=== PATIENT | female | born 1945 | race African-American/Black ===

== ENCOUNTER 2017-08-29 14:52 | Inpatient (IN) | payer MEDICARE ==
[2017-08-29] MEDS ORDERED: Ondansetron ODT 4 MG TAB SL PRN (18:56)
[2017-08-29] MEDS ORDERED: Acetaminophen 325 MG TAB PO PRN (18:56)
[2017-08-29] MEDS ORDERED: Ondansetron HCl/PF 4 MG/2 ML Vial IVP PRN ×2 (18:56→21:25)
[2017-08-29 19:08] VITALS: BMI 24.0
[2017-08-29 20:10] LABS: Troponin I 0.054 ng/mL (< 0.028)
[2017-08-29] MEDS ORDERED: Acetaminophen 500 MG TAB PO PRN (21:25)
[2017-08-29] MEDS ORDERED: Ondansetron ODT 4 MG TAB PO PRN (21:25)
[2017-08-29] MEDS ORDERED: hydrALAZINE 20 MG/ML VIAL SLOW IVP PRN (21:25)
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
[2017-08-30 05:59] LABS: Anion Gap 12 mmol/L (10-20); BUN (Urea Nitrogen) 23 mg/dL (9.8-20.1); Calc. Creatinine Clearance 32 mL/min (70-130); Calcium 9.5 mg/dL (7.8-10.44); Carbon Dioxide 24 mmol/L (23-31); Cardiac Risk 3.7 (Less than 4.5); Chloride 104 mmol/L (98-107); Cholesterol 139 mg/dl (< 200 Desired); Estimated GFR-MDRD 38; Glucose 88 mg/dL (83-110); HDL Cholesterol 38 mg/dL (>60 Neg Risk); LDL Cholesterol, Calculated 84 mg/dL; Potassium 3.3 mmol/L (3.5-5.1); Sodium 137 mmol/L (136-145); Triglycerides 85 mg/dL (Less than 150)
[2017-08-30 06:15] LABS: Eosinophils 2 % (0-10); Hemoglobin 13.2 g/dL (12.0-16.0); Lymphocytes 46 % (21-51); MDiff Complete? YES; Mean Corpuscular HGB CONC 31.1 g/dL (32.0-36.0); Mean Corpuscular Hemoglobin 28.2 pg (27.0-31.0); Mean Corpuscular Volume 90.7 fl (81.0-99.0); Mean Platelet Volume 7.1 fL (7.4-10.4); Monocytes 12 % (0-10); Neutrophil 39 % (42-75); PLT Morphology Comment Appears Adequate; Platelet Count 227 thou/uL (130-400); RBC Distribution Width 12.8 % (11.5-14.5); RBC Morphology Normal; Reactive Lymphocytes 1 % (0-10); Red Blood Cell (RBC) Count 4.66 mill/uL (4.20-5.40); White Blood Cell (WBC) Count 4.7 thou/uL (4.8-10.8)
--- NOTE | 2017-08-30 08:34 | ULT ---
CAROTID DOPPLER ULTRASOUND: Date: 08/30/17 HISTORY: Evaluate for focal stenosis. TIA> COMPARISON: None. TECHNIQUE: Real-time Feliz scale, color Doppler, and spectral analysis of the extracranial carotid and vertebral arteries was performed. FINDINGS: There are no elevated peak systolic velocities within the internal carotid arteries. Moderate atheros clerotic plaque both internal carotid arteries. Antegrade flow both vertebral arteries. Right ICA/CCA ratio is 1.05. Left ICA/CCA ratio is 1.09. IMPRESSION: No hemodynamically significant stenosis. POS: BRANDYN
[2017-08-30] MEDS: Aspirin 325 mg Enteric Coated Tablet PO SCH (08:56)
[2017-08-30] MEDS ORDERED: Famotidine 20 MG TAB PO SCH (09:00)
--- NOTE | 2017-08-30 11:39 | MRI ---
MRI BRAIN WITHOUT CONTRAST: Date: 08/30/17 HISTORY: TIA. COMPARISON: CT brain dated 08/29/17. FINDINGS: Throughout the left TIANA territory are numerous punctate areas of diffusion restriction. No other terr itorial infarction. Old right lacunar infarct. On the susceptibility weighted imaging sequence, there is susceptibility around the old right lacunar infarct, likely from old hemorrhage within the cavity. Small, punctate area of old hemorrhage in the right zandra. No midline shift or mass effect. Moderate microvascular ischemic changes. No hydrocephalus. No subara chnoid hemorrhage. Orbits are unremarkable. IMPRESSION: 1. Numerous punctate acute infarctions within the left TIANA territory. 2. Old right basal ganglia lacunar infarct with hemorrhage within the cavity. 3. 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 4. Advanced degenerative changes of the cervical spine. POS: BRANDYN
--- NOTE | 2017-08-30 17:06 | PDOC.PN ---
- Subjective Encounter Start Date: 08/30/17 Encounter Start Time: 17:00 Subjective: f/u for suspected TIA and MRI showing acute punctate infarctions in L -: TIANA distribution. Tx with ASA and feeling ok overall. Still has -: numbness of R thigh region. - Objective MAR Reviewed: Yes Vital Signs & Weight: Vital Signs (12 hours) Temp Pulse Resp BP Pulse Ox 08/30/17 14:27 98.5 F 55 L 15 158/77 H 96 I&O: 08/29/17 08/30/17 08/31/17 06:59 06:59 06:59 Intake Total 240 Balance 240 Result Diagrams: 08/30/17 04:28 08/30/17 04:28 Additional Labs: Laboratory Tests 08/29/17 08/30/17 12:00 04:28 Potassium 3.4 L Creatinine 1.62 H Estimated GFR (MDRD) 38 Triglycerides 85 Cholesterol 139 LDL Cholesterol, Calc 84 HDL Cholesterol 38 Radiology Reviewed by me: Yes (MRI Brain - L TIANA punctate acute infarctions) EKG Reviewed by me: Yes (Tele - SR) Phys Exam - Physical Examination Constitutional: NAD HEENT: PERRLA, oral pharynx no lesions Neck: no JVD, supple Respiratory: no wheezing, clear to auscultation bilateral Cardiovascular: RRR Gastrointestinal: soft, non-tender, no distention, positive bowel sounds Musculoskeletal: no edema, pulses present R-sided mild hemiparesis, moves all extremities dysarthria, R facial droop Neurological: normal sensation, moves all 4 limbs Skin: normal turgor, cap refill <2 seconds Dx/Plan (1) CVA (cerebral vascular accident) Code(s): I63.9 - CEREBRAL INFARCTION, UNSPECIFIED Status: Acute Qualifiers: CVA mechanism: thrombosis Precerebral and cerebral artery: anterior cerebral artery Laterality of affected vessel: left Qualified Code(s): I63.322 - Cerebral infarction due to thrombosis of left anterior cerebral artery Comment: Acute CVA in L TIANA distribution with multiple punctate infarcts noted on MRI brain, continue ASA 325mg daily, Lipitor 20mg HS, stroke protocol, consult Neurology, 2D echo pending (2) HTN (hypertension) Code(s): I10 - ESSENTIAL (PRIMARY) HYPERTENSION Status: Chronic Qualifiers: Hypertension type: essential hypertension Qualified Code(s): I10 - Essential (primary) hypertension Comment: Permissive HTN given acute CVA, titrate antihypertensives after acute phase (3) Elevated troponin I level Code(s): R74.8 - ABNORMAL LEVELS OF OTHER SERUM ENZYMES Status: Acute Comment: Suspect demand state given presentation, continue ASA, Lipitor (4) CKD (chronic kidney disease), stage III Code(s): N18.3 - CHRONIC KIDNEY DISEASE, STAGE 3 (MODERATE) Status: Chronic Comment: Avoid nephrotoxic meds and limit contrast exposure (5) HLD (hyperlipidemia) Code(s): E78.5 - HYPERLIPIDEMIA, UNSPECIFIED Status: Chronic Comment: Continue Lipitor (6) Hypokalemia Code(s): E87.6 - HYPOKALEMIA Status: Acute Comment: KCL 40meq po daily, repeat K+ level in am - Plan plan discussed w/ family, PT/OT, social media strategist, out of bed/ambulate, DVT proph w/SCDs Stable currently -: Continue general stroke protocol -: CM for PT options, ? outpt PT -: Continue ASA 325mg daily -: Continue Lipitor 20mg HS * 2D Echo pending * Convert to inpt status
[2017-08-30] MEDS: Atorvastatin Calcium 20 MG TAB PO SCH (21:02)
[2017-08-31] MEDS: Famotidine 20 MG TAB PO SCH (09:27)
[2017-08-31] MEDS: Aspirin 325 mg Enteric Coated Tablet PO SCH (09:27)
--- NOTE | 2017-08-31 14:45 | PDOC.PN ---
- Subjective Encounter Start Date: 08/31/17 Encounter Start Time: 14:40 Subjective: f/u for L TIANA distribution punctate infarctions on ASA and Lipitor. HTN -: noted and labile. Some R thigh numbness remains but able to ambulate -: with PT assist. - Objective MAR Reviewed: Yes Vital Signs & Weight: Vital Signs (12 hours) Temp Pulse Pulse Pulse Pulse Resp BP 08/31/17 11:40 98.8 F 50 L 16 08/31/17 10:35 54 L 59 L 159/70 H 08/31/17 08:10 52 L 51 L 181/83 H 08/31/17 07:30 97.4 F L 45 L 18 08/31/17 04:00 97.3 F L 46 L 16 BP BP BP Pulse Ox 08/31/17 11:40 171/79 H 98 08/31/17 10:35 193/90 H 140/77 08/31/17 08:10 188/86 H 08/31/17 07:30 163/72 H 96 08/31/17 04:00 138/63 97 I&O: 08/30/17 08/31/17 09/01/17 06:59 06:59 06:59 Intake Total 540 600 Balance 540 600 Result Diagrams: 08/30/17 04:28 08/30/17 04:28 Radiology Reviewed by me: Yes (2D Echo - EF 40-45%, diast dysfxn, limited study) EKG Reviewed by me: Yes (Tele - Sinus bradycardia) Phys Exam - Physical Examination Constitutional: NAD HEENT: PERRLA, oral pharynx no lesions Neck: no JVD, supple Respiratory: no wheezing, clear to auscultation bilateral Cardiovascular: RRR Gastrointestinal: soft, non-tender, no distention, positive bowel sounds Musculoskeletal: no edema, pulses present R sided weakness, mild, R facial droop, mild Neurological: moves all 4 limbs Psychiatric: A&O x 3 Skin: normal turgor, cap refill <2 seconds Dx/Plan (1) CVA (cerebral vascular accident) Code(s): I63.9 - CEREBRAL INFARCTION, UNSPECIFIED Status: Acute Qualifiers: CVA mechanism: thrombosis Precerebral and cerebral artery: anterior cerebral artery Laterality of affected vessel: left Qualified Code(s): I63.322 - Cerebral infarction due to thrombosis of left anterior cerebral artery Comment: Acute CVA in L TIANA distribution with multiple punctate infarcts noted on MRI brain, continue ASA 325mg daily, Lipitor 20mg HS, stroke protocol, consult Neurology, 2D echo with EF 40-45%, diastolic dysfunction (2) HTN (hypertension) Code(s): I10 - ESSENTIAL (PRIMARY) HYPERTENSION Status: Chronic Qualifiers: Hypertension type: essential hypertension Qualified Code(s): I10 - Essential (primary) hypertension Comment: Permissive HTN given acute CVA but labile, start Norvasc 5mg daily, monitor clinically (3) Elevated troponin I level Code(s): R74.8 - ABNORMAL LEVELS OF OTHER SERUM ENZYMES Status: Acute Comment: Suspect demand state given presentation, continue ASA, Lipitor (4) CKD (chronic kidney disease), stage III Code(s): N18.3 - CHRONIC KIDNEY DISEASE, STAGE 3 (MODERATE) Status: Chronic Comment: Avoid nephrotoxic meds and limit contrast exposure (5) HLD (hyperlipidemia) Code(s): E78.5 - HYPERLIPIDEMIA, UNSPECIFIED Status: Chronic Comment: Continue Lipitor (6) Hypokalemia Code(s): E87.6 - HYPOKALEMIA Status: Acute Comment: KCL 40meq po x 1 today then BID, repeat K+ level in am - Plan plan discussed w/ family, PT/OT, social work job titles, out of bed/ambulate, DVT proph w/SCDs Continue ASA 325mg daily -: Continue Lipitor 20mg HS -: Start Norvasc 5mg daily -: PT/OT for mobilization -: Neurology consult pending * AM lab: BMP * CM for SNF options, likely [facility]
[2017-08-31] MEDS ORDERED: Potassium Chloride 20 MEQ TAB PO SCH (15:00)
[2017-08-31] MEDS ORDERED: Amlodipine 5 MG TAB PO SCH (15:45)
--- NOTE | 2017-08-31 19:47 | CON ---
DATE OF CONSULTATION: 08/31/2017 NEUROLOGY CONSULTATION CONSULTING PHYSICIAN: Hospitalist Service. IMPRESSION: 1. Left anterior cerebral artery infarct, likely secondary to primary thrombosis. 2. Prior right basal ganglia and pontine infarct. 3. Hyperlipidemia. 4. Hypertension. PLAN: 1. Add aspirin. 2. Continue statin. 3. Patient can be discharged home. HISTORY OF PRESENT ILLNESS: Ms. Andrea is a 72-year-old black female with a past history as noted abov e. She developed right-sided weakness and primarily affecting the upper extremity. She came in for evaluation. Her MRI of the brain revealed acute areas of punctate infarction involving the left ante rior cerebral artery territory. She reports that her symptoms have improved quite a bit since yester day. Her carotid ultrasound did not show any evidence of extracranial stenosis. Her echocardiogram showed an ejection fraction between 40% and 45%. Her laboratory studies were otherwise negative. Kathy mishra was not taking aspirin prior to admission. PAST MEDICAL HISTORY: As listed above. ALLERGIES: None. SOCIAL HISTORY: No tobacco or alcohol. FAMILY HISTORY: Noncontributory. REVIEW OF SYSTEMS: No complaint of headache, difficulty understanding speech or producing words. PHYSICAL EXAMINATION: VITAL SIGNS: Stable. She is afebrile. GENERAL: She is a thin elderly lady sitting up in bed in no distress. HEENT: Unremarkable. NECK: Without lymphadenopathy. EXTREMITIES: Without cyanosis, clubbing or edema. NEUROLOGIC: She is alert and cooperative. She was not very willing to carry on a conversation, but her speech was fluent and clear. She followed commands appropriately. Her motor exam did not show a ny focal deficits. Sensation was subjectively equal. She has been able to walk independently. Ther e is no tremor or dysmetria present. DIAGNOSTIC STUDIES: EKG showed a sinus rhythm. SUMMARY: Elderly lady with a focal infarction involving the left anterior cerebral territory. Sympt oms are much better. I agree with your plan of treatment.
[2017-08-31] MEDS: Atorvastatin Calcium 20 MG TAB PO SCH (21:45)
[2017-09-01 06:22] LABS: Anion Gap 13 mmol/L (10-20); BUN (Urea Nitrogen) 23 mg/dL (9.8-20.1); Calc. Creatinine Clearance 35 mL/min (70-130); Calcium 9.5 mg/dL (7.8-10.44); Carbon Dioxide 20 mmol/L (23-31); Chloride 108 mmol/L (98-107); Estimated GFR-MDRD 42; Glucose 105 mg/dL (83-110); Sodium 137 mmol/L (136-145)
[2017-09-01] MEDS: Famotidine 20 MG TAB PO SCH (09:32)
[2017-09-01] MEDS: Aspirin 325 mg Enteric Coated Tablet PO SCH (09:32)
[2017-09-01] MEDS: Potassium Chloride 20 MEQ TAB PO SCH ×2 (09:32→18:21)
[2017-09-01] MEDS: Amlodipine 5 MG TAB PO SCH (09:32)
--- NOTE | 2017-09-01 16:23 | PDOC.PN ---
- Subjective Encounter Start Date: 09/01/17 Encounter Start Time: 08:35 -: old records requested/rev Pt seen and examined, chart reviewed in its entirety, this is my first visit with this patient. Pt with LUE and LLE weakness, Right ptosis. Deneis F/C, no N/V/D/C, no CP or sOB. updated to plan to release to rehab when approved. Case discussed with case management, pending insurance approval, requires a pre-auth 10 point ROS performed and neg for all systems except as per HPI - Objective Resuscitation Status: f MAR Reviewed: Yes Vital Signs & Weight: Vital Signs (12 hours) Temp Pulse Resp BP Pulse Ox 09/01/17 15:43 98.2 F 57 L 16 182/75 H 95 09/01/17 11:49 98.6 F 60 16 145/66 H 99 09/01/17 09:32 49 L 09/01/17 08:15 98.1 F 49 L 14 94 L 09/01/17 04:33 98.1 F 49 L 14 161/78 H 94 L I&O: 08/31/17 09/01/17 09/02/17 06:59 06:59 06:59 Intake Total 540 1400 Balance 540 1400 Result Diagrams: 08/30/17 04:28 09/01/17 05:44 Radiology Reviewed by me: Yes EKG Reviewed by me: Yes Phys Exam - Physical Examination Constitutional: NAD HEENT: PERRLA, moist MMs, sclera anicteric, oral pharynx no lesions right lid ptosis Neck: no nodes, no JVD, supple, full ROM Respiratory: no wheezing, no rales, no rhonchi, clear to auscultation bilateral Cardiovascular: no significant murmur, no rub, irregular Gastrointestinal: soft, non-tender, no distention, positive bowel sounds Musculoskeletal: no edema, pulses present Neurological: moves all 4 limbs LUE, LLE 3/5 strength, right 5/5 Lymphatic: no nodes Psychiatric: normal affect, A&O x 3 Skin: no rash, normal turgor, cap refill <2 seconds Dx/Plan (1) Chronic combined systolic (congestive) and diastolic (congestive) heart failure Code(s): I50.42 - CHRONIC COMBINED SYSTOLIC AND DIASTOLIC HRT FAIL Status: Acute Comment: EF 40-45%, DD present, no acute flare (2) CVA (cerebral vascular accident) Code(s): I63.9 - CEREBRAL INFARCTION, UNSPECIFIED Status: Acute Qualifiers: CVA mechanism: thrombosis Precerebral and cerebral artery: anterior cerebral artery Laterality of affected vessel: left Qualified Code(s): I63.322 - Cerebral infarction due to thrombosis of left anterior cerebral artery Comment: Acute CVA in L TIANA distribution with multiple punctate infarcts noted on MRI brain, continue ASA 325mg daily, Lipitor 20mg HS, stroke protocol, consult Neurology, 2D echo with EF 40-45%, diastolic dysfunction. To rehab when approved (3) Elevated troponin I level Code(s): R74.8 - ABNORMAL LEVELS OF OTHER SERUM ENZYMES Status: Resolved Comment: Suspect demand state given presentation, continue ASA, Lipitor (4) CKD (chronic kidney disease), stage III Code(s): N18.3 - CHRONIC KIDNEY DISEASE, STAGE 3 (MODERATE) Status: Chronic Comment: Avoid nephrotoxic meds and limit contrast exposure (5) HLD (hyperlipidemia) Code(s): E78.5 - HYPERLIPIDEMIA, UNSPECIFIED Status: Chronic Qualifiers: Hyperlipidemia type: unspecified Qualified Code(s): E78.5 - Hyperlipidemia , unspecified Comment: Continue Lipitor (6) HTN (hypertension) Code(s): I10 - ESSENTIAL (PRIMARY) HYPERTENSION Status: Chronic Qualifiers: Hypertension type: essential hypertension Qualified Code(s): I10 - Essential (primary) hypertension Comment: Permissive HTN given acute CVA but labile, start Norvasc 5mg daily, monitor clinically. Stable - Plan cont current plan of care, PT/OT, social professionals, DVT proph w/SCDs * .
[2017-09-01] MEDS: Atorvastatin Calcium 20 MG TAB PO SCH (23:15)
[2017-09-02 06:26] LABS: #Lymphocytes 1.6 thou/uL (1.20-3.40); #Monocytes 0.5 thou/uL (0.11-0.59); #Neutrophils 1.9 thou/uL (1.40-6.50); %Basophils 0.9 % (0.0-1.0); %Eosinophils 1.2 % (0.0-10.0); %Lymphocytes 40.2 % (21.0-51.0); %Monocytes 11.3 % (0.0-10.0); %Neutrophils 46.4 % (42.0-75.0); Hemoglobin 14.3 g/dL (12.0-16.0); Mean Corpuscular HGB CONC 32.4 g/dL (32.0-36.0); Mean Corpuscular Volume 92.5 fl (81.0-99.0); Mean Platelet Volume 7.1 fL (7.4-10.4); Platelet Count 217 thou/uL (130-400); RBC Distribution Width 12.8 % (11.5-14.5); Red Blood Cell (RBC) Count 4.76 mill/uL (4.20-5.40)
[2017-09-02 06:53] LABS: Anion Gap 12 mmol/L (10-20); BUN (Urea Nitrogen) 21 mg/dL (9.8-20.1); Calc. Creatinine Clearance 34 mL/min (70-130); Calcium 9.9 mg/dL (7.8-10.44); Carbon Dioxide 22 mmol/L (23-31); Chloride 111 mmol/L (98-107); Estimated GFR-MDRD 42; Glucose 95 mg/dL (83-110); Magnesium 1.8 mg/dL (1.6-2.6); Potassium 4.8 mmol/L (3.5-5.1); Sodium 140 mmol/L (136-145)
[2017-09-02 08:18] VITALS: BP 161/72; TEMP 98.2
[2017-09-02] MEDS: Potassium Chloride 20 MEQ TAB PO SCH (09:17)
[2017-09-02] MEDS: Famotidine 20 MG TAB PO SCH (09:17)
[2017-09-02] MEDS: Amlodipine 5 MG TAB PO SCH (09:17)
[2017-09-02] MEDS: Aspirin 325 mg Enteric Coated Tablet PO SCH (09:18)
--- NOTE | 2017-09-03 06:55 | DIS ---
DATE OF ADMISSION: 08/30/2017 DATE OF DISCHARGE: 09/02/2017 DISCHARGE DIAGNOSES: 1. Left anterior cerebral artery distribution ischemic infarct. 2. Left hemiparesis. 3. Expressive aphasia. 4. Hypertension, essential, chronic. 5. Hyperlipidemia, chronic. 6. Chronic combined systolic and diastolic congestive heart failure. 7. Demand ischemia. 8. Chronic kidney disease stage 3. CONSULTATIONS: Neurology, Dr. Ger Prince, 08/31/2017. PROCEDURES: Echocardiogram on 08/31/2017 that showed EF of 40%-45%, poor endocardial definition, pos sible hypokinesis of the lateral wall, E to A flow reversal noted suggestive of diastolic dysfunction . HISTORY AND PHYSICAL: Ms. Andrea is a pleasant 72-year-old -[place] female who was admitted by Dr. Keyur Gar on 08/29/2017 after complaining of falling and weakness. She presented to an outside Emergency Department at [place] and was subsequently transferred her e. There was no hard time who was found to be in left-sided weakness, thus the patient was not a can didate for TPA. CT scan was negative. We were subsequently called for admission. HOSPITAL COURSE: The patient was seen and examined by Dr. Keyur Gar and admitted to the hospital. MRI of the brain, carotid Dopplers and echocardiogram were ordered. Neurology consultation was req uested. The patient was placed on aspirin, was continued on statin, and PT, OT and Speech Therapy co nsults were requested. From 08/29/2017 to 08/30/2017, the patient remained stable without much improvement. PT, OT evaluate d the patient and thought inpatient rehabilitation versus detention facility rehab appropriate. MRI on 08/30/2017 showed numerous punctate acute infarcts in the left TIANA territory, old right basa l ganglia lacunar infarct with hemorrhage within the cavity, old right-sided pontine hemorrhage and a dvanced degenerative changes of the cervical spine. Carotid Doppler on the same day showed no hemody namically significant stenoses. She continued to remain stable. On 08/31/2017, echocardiogram was done that showed no evidence of th rombus. Neurology saw her and recommended continuing current management with aspirin, statin, PT, OT and rehab placement. construction operations manager was consulted and arrangements were begun. She was ultimately accepted for rehabilitation at [facility] swing bed for re habilitation, to be accepted on 09/02/2017, and on 09/02/2017 she was stable for discharge. She was transferred to [facility] under care of Dr. Arriaga for PT, OT and ST. PHYSICAL EXAMINATION: The patient was seen and examined on the day of discharge. Discharge plan and disposition was discussed with the patient face-to face-at the bedside. was present. DISCHARGE MEDICATIONS: 1. Aspirin 325 mg daily. 2. Lipitor 20 mg p.o. at bedtime. 3. Famotidine 20 mg daily. 4. Lisinopril/HCTZ 20/25 one p.o. daily. 5. Zofran 4 mg p.o. q.6 hours p.r.n. 6. K-Dur 40 mEq p.o. daily. 7. Norvasc 5 mg daily. 8. Tylenol 1000 mg every 6 hours as needed for pain or fever. DISCHARGE CONDITION: Stable. DISPOSITION: Being transferred to [facility] for physical therapy, speech therapy, occu pational therapy under Dr. Arriaga. ACTIVITY: Per Cardiopulmonary limits. DISCHARGE DIET: Heart healthy ordered. FOLLOWUP APPOINTMENTS: 1. Primary care physician within a week. 2. Dr. Ger Prince in 2-3 weeks.
== END 2017-09-02 11:32 | DRG 65 ==
LOC: ERS 14:52 → 2SW 18:39 → OBSVTOIN 08-30 12:59 → 2SE 08-30 14:28
PROVIDERS: ADMIT Family Medicine; ATTEND Family Medicine
DX: I63.9 Cerebral infarction, unspecified (principal); G81.94 Hemiplegia, unspecified affecting left nondominant side; I13.0 Hypertensive heart and chronic kidney disease with heart failure and stage 1 through stage 4 chronic kidney disease, or unspecified chronic kidney disease; I50.42 Chronic combined systolic (congestive) and diastolic (congestive) heart failure; I24.8 Other forms of acute ischemic heart disease; N18.3 Chronic kidney disease, stage 3 (moderate); R47.01 Aphasia; E78.5 Hyperlipidemia, unspecified; Z86.73 Personal history of transient ischemic attack (TIA), and cerebral infarction without residual deficits; E87.6 Hypokalemia
CPT/HCPCS: 36415; 70551; 80048; 80061; 83690; 83735; 85007; 85025; 85027; 93005; 93306; 93880; A4216; G8978-GP-CK; G8979-GP-CJ; G8987-GO-CJ; G8988-GO-CI; G8996-GN-CJ; G8997-GN-CI

== ENCOUNTER 2021-02-09 15:05 | Inpatient (IN) | payer MEDICARE ==
[2021-02-09] MEDS ORDERED: EPINEPHrine 1 MG/10 ML Abboject SYRINGE ONE ×4 (15:10→16:22)
[2021-02-09] MEDS ORDERED: EPINEPHrine 1 MG/ML VIAL ONE ×3 (15:10→16:22)
[2021-02-09 15:30] LABS: Actual Bicarbonate (HCO3a) 17.2 mEq/L (22-28); Analyzer IN Cardio ER; Base Excess (BEa) -7.4 mEq/L (-2.0 to +3.0); CO2 Tension 32.5 mmHg (35.0-45.0); Calcium, Ionized (arterial) 1.12 mmol/L (1.12-1.30); Carboxyhemoglobin (COHb) 1.5 gm% (0.0-3.0); Hemoglobin (Hb) 13.9 g/dL (12.0-16.0); Potassium - ABG Lab 3.48 mmol/L (3.70-5.30); pH, Arterial 7.34 (7.35-7.45)
[2021-02-09] MEDS ORDERED: Fentanyl CADD 100 ML IV SCH (15:30)
[2021-02-09 15:32] LABS: Puncture Site RRA
[2021-02-09 15:33] LABS: ALV-art Gradient 237.875 mmHg (0-20)
[2021-02-09] MEDS ORDERED: Lidocaine 1% (PF) 30 ML VIAL ONE (15:34)
[2021-02-09] MEDS ORDERED: Heparin 10,000 UNITS/ 10 ML VIAL ONE (15:34)
[2021-02-09 15:36] LABS: #Basophils 0.2 thou/uL (0.0-0.2); #Eosinphils 0.1 thou/uL (0.0-0.7); #Lymphocytes 2.8 thou/uL (1.20-3.40); #Monocytes 0.3 thou/uL (0.11-0.59); %Basophils 1.7 % (0.0-1.0); %Eosinophils 0.8 % (0.0-10.0); %Lymphocytes 29.6 % (21.0-51.0); %Monocytes 3.2 % (0.0-10.0); %Neutrophils 64.6 % (42.0-75.0); Hemoglobin 13.9 g/dL (12.0-16.0); Mean Corpuscular HGB CONC 33.8 g/dL (32.0-36.0); Mean Corpuscular Hemoglobin 30.5 pg (27.0-31.0); Mean Corpuscular Volume 90.2 fL (78.0-98.0); Mean Platelet Volume 8.5 fL (7.4-10.4); Platelet Count 184 thou/uL (130-400); RBC Distribution Width 12.9 % (11.5-14.5); Red Blood Cell (RBC) Count 4.56 mill/uL (4.20-5.40); White Blood Cell (WBC) Count 9.3 thou/uL (4.8-10.8)
[2021-02-09 16:01] LABS: SARS-CoV-2 NAA Rapid Test Not Detected (NotDetected)
[2021-02-09 16:01] LABS: ALT (SGPT) 31 U/L (8-55); AST (SGOT) 56 U/L (5-34); Albumin 3.5 g/dL (3.4-4.8); Alkaline Phosphatase 156 U/L (40-110); Anion Gap 26 mmol/L (10-20); BUN (Urea Nitrogen) 17 mg/dL (9.8-20.1); Bilirubin, Total 0.7 mg/dL (0.2-1.2); CK (CPK) 92 U/L (29-168); Calc. Creatinine Clearance 0 mL/min (70-130); Carbon Dioxide 16 mmol/L (23-31); Chloride 106 mmol/L (98-107); Globulin 3.6 g/dL (2.4-3.5); Glucose 158 mg/dL (83-110); Magnesium 2.1 mg/dL (1.6-2.6); Protein, Total 7.1 g/dL (5.8-8.1); Sodium 143 mmol/L (136-145)
[2021-02-09] MEDS ORDERED: Atropine Sulfate 1 mg/10 ml Syringe ONE (16:11)
[2021-02-09 16:12] LABS: INR-International Normal Ratio 1.2; PTT 29.7 sec (22.9-36.1); Prothrombin Time 14.8 sec (12.0-14.7)
[2021-02-09] MEDS ORDERED: Gentamicin 80 MG/2 ML VIAL ONE (16:17)
[2021-02-09] MEDS ORDERED: CEFAZOLIN 1 GM VIAL ONE (16:17)
[2021-02-09 16:19] LABS: CKMB 6.5 ng/mL (0-6.6)
[2021-02-09] MEDS ORDERED: Acetaminophen/Codeine 30-300mg Tablet PO PRN (17:25)
[2021-02-09] MEDS ORDERED: Propofol 1,000 MG/100 ML VIAL IV ONE (17:46)
[2021-02-09] MEDS ORDERED: Electrolyte Replacement Protocol 1 EACH FS ONE (18:07)
[2021-02-09] MEDS ORDERED: Ventilator Sedation Protocol 1 EACH FS ONE (18:07)
[2021-02-09] MEDS ORDERED: niCARdipine 40MG In NaCl 40 MG/200 ML BAG IVPB SCH (18:15)
[2021-02-09 18:24] LABS: pH, Arterial 7.47 (7.35-7.45)
[2021-02-09 18:25] LABS: Actual Bicarbonate (HCO3a) 16.9 mEq/L (22-28); Base Excess (BEa) -4.7 mEq/L (-2.0 to +3.0); CO2 Tension 23.8 mmHg (35.0-45.0); Calcium, Ionized (arterial) 1.07 mmol/L (1.12-1.30); Carboxyhemoglobin (COHb) 0.3 gm% (0.0-3.0); Hemoglobin (Hb) 14.7 g/dL (12.0-16.0); O2 Tension (PaO2), arterial 97.2 mmHg (> 70.0); Potassium - ABG Lab 2.51 mmol/L (3.70-5.30)
[2021-02-09 18:26] LABS: Puncture Site RBR
[2021-02-09] MEDS ORDERED: Propofol BOLUS 1,000 MG/100 ML VIAL IV PRN (18:45)
[2021-02-09] MEDS ORDERED: DISCONTINUE PREVIOUS NARCOTIC PAIN MEDICATIONS AND BENZODIAZEPINES FS SCH (18:45)
[2021-02-09] MEDS ORDERED: Fentanyl BOLUS 250 ML IVPB PRN (18:45)
[2021-02-09] MEDS ORDERED: Electrolyte Replacement Protocol FS PRN (18:45)
[2021-02-09] MEDS ORDERED: Sodium Chloride 0.9% (PF) 10 ML VIAL FS PRN (18:45)
[2021-02-09] MEDS ORDERED: niCARdipine 25 MG in Sodium Chloride 0.9% 250 ML 240 ML IVPB SCH (19:00)
[2021-02-09] MEDS: Sodium Chloride 0.9% 1,000 ML IV SCH (19:34)
[2021-02-09] MEDS: Lactated Ringer's 1,000 ML IV SCH (19:35)
[2021-02-09 20:07] LABS: Lactic Acid 11.3 mmol/L (0.5-2.2)
[2021-02-09 22:50] LABS: Bacteria/HPF 1+ HPF (None Seen); Bilirubin Negative (Negative); Blood, Urine 1+ (Negative); Clarity Turbid (Clear); Glucose, Urine (Dipstick) 30 mg/dL (Negative); Ketone, Urine Negative (Negative); Leukocyte 250 Leu/uL (Negative); Nitrite Negative (Negative); Protein, Urine (Dipstick) 20 mg/dL (Neg-Trace); Specific Gravity, Urine 1.025 (1.002-1.036); Squamous Epithelial 0-3 HPF (0-3); Urobilinogen Normal mg/dL (Less than 2); WBC/HPF 21-50 HPF (0-3)
[2021-02-10] MEDS: Propofol 1,000 MG/100 ML VIAL IV PRN ×3 (03:36→20:42)
[2021-02-10] MEDS: Sodium Chloride 0.9% 1,000 ML IV SCH (03:36)
[2021-02-10 07:06] LABS: Actual Bicarbonate (HCO3a) 20.1 mEq/L (22-28); Base Excess (BEa) -0.7 mEq/L (-2.0 to +3.0); Calcium, Ionized (arterial) 1.06 mmol/L (1.12-1.30); Carboxyhemoglobin (COHb) 0.3 gm% (0.0-3.0); Hemoglobin (Hb) 14.1 g/dL (12.0-16.0); O2 Tension (PaO2), arterial 113.9 mmHg (> 70.0); Potassium - ABG Lab 3.43 mmol/L (3.70-5.30); pH, Arterial 7.54 (7.35-7.45)
[2021-02-10 07:08] LABS: Hemoglobin 15.2 g/dL (12.0-16.0); Mean Corpuscular HGB CONC 33.6 g/dL (32.0-36.0); Mean Corpuscular Hemoglobin 29.8 pg (27.0-31.0); Mean Corpuscular Volume 88.8 fL (78.0-98.0); Red Blood Cell (RBC) Count 5.08 mill/uL (4.20-5.40)
[2021-02-10 07:10] LABS: CO2 Tension 24.2 mmHg (35.0-45.0); Puncture Site RRA
[2021-02-10 07:15] LABS: Anion Gap 23 mmol/L (10-20); BUN (Urea Nitrogen) 20 mg/dL (9.8-20.1); Calc. Creatinine Clearance 27 mL/min (70-130); Calcium 9.1 mg/dL (7.8-10.44); Carbon Dioxide 14 mmol/L (23-31); Cardiac Risk 4.3 (Less than 4.5); Chloride 107 mmol/L (98-107); Cholesterol 167 mg/dl (< 200 Desired); Glucose 87 mg/dL (83-110); HDL Cholesterol 39 mg/dL (>60 Neg Risk); LDL Cholesterol, Calculated 103 mg/dL; Potassium 4.2 mmol/L (3.5-5.1); Sodium 140 mmol/L (136-145); Triglycerides 124 mg/dL (Less than 150)
[2021-02-10 08:22] LABS: Band 4 % (5-11); Lymphocytes 11 % (21-51); MDiff Complete? YES; Mean Platelet Volume 8.1 fL (7.4-10.4); Monocytes 7 % (0-10); Neutrophil 78 % (42-75); Platelet Count 165 thou/uL (130-400); Platelet Morphology Comment Appears Adequate; Vacuoles SLIGHT
[2021-02-10] MEDS ORDERED: Enoxaparin Sodium 40 MG/0.4 ML SYRINGE SC SCH (09:00)
[2021-02-10] MEDS: Pantoprazole 40 MG VIAL IVP SCH (09:28)
[2021-02-10] MEDS: Lactated Ringer's 1,000 ML IV SCH ×2 (09:29→23:00)
[2021-02-10] MEDS ORDERED: Norepinephrine 8 MG/0.9% NS 250 ML ONE (11:26)
[2021-02-10] MEDS ORDERED: Norepinephrine 8 MG/0.9% NS 250 ML IVPB SCH ×2 (11:30→12:00)
[2021-02-10 12:56] LABS: Amphetamine Not Detected (NotDetected); Barbiturates Screen Not Detected (NotDetected); Benzodiazepine Screen Not Detected (NotDetected); Cocaine Metabolite Screen Detected (NotDetected); Methadone Not Detected (NotDetected); Methamphetamine Not Detected (NotDetected); Opiate Screen Not Detected (NotDetected); Oxycodone Screen Not Detected (NotDetected); Phencyclidine (PCP) Not Detected (NotDetected); THC/Cannabinoid Screen Not Detected (NotDetected); Tricyclic Screen Not Detected (NotDetected)
[2021-02-10] MEDS ORDERED: niCARdipine 50 MG in Sodium Chloride 0.9% 250 ML 230 ML IV SCH (13:15)
[2021-02-10 13:35] LABS: Magnesium 1.5 mg/dL (1.6-2.6)
[2021-02-10] MEDS ORDERED: Magnesium 2 GM/50 ML 2 GM in Premix Bag 1 BAG IVPB SCH ×2 (14:00→15:00)
[2021-02-11] MEDS: Propofol 1,000 MG/100 ML VIAL IV PRN ×2 (03:43→23:22)
[2021-02-11 06:50] LABS: #Lymphocytes 1.3 thou/uL (1.20-3.40); #Monocytes 0.9 thou/uL (0.11-0.59); #Neutrophils 7.6 thou/uL (1.40-6.50); %Basophils 0.2 % (0.0-1.0); %Eosinophils 0.3 % (0.0-10.0); %Lymphocytes 13.2 % (21.0-51.0); %Monocytes 9.3 % (0.0-10.0); Hemoglobin 10.9 g/dL (12.0-16.0); Mean Corpuscular Hemoglobin 30.2 pg (27.0-31.0); Mean Corpuscular Volume 88.8 fL (78.0-98.0); Platelet Count 127 thou/uL (130-400); RBC Distribution Width 13.1 % (11.5-14.5); White Blood Cell (WBC) Count 9.9 thou/uL (4.8-10.8)
[2021-02-11 07:12] LABS: Anion Gap 18 mmol/L (10-20); BUN (Urea Nitrogen) 31 mg/dL (9.8-20.1); Calc. Creatinine Clearance 23 mL/min (70-130); Carbon Dioxide 19 mmol/L (23-31); Chloride 104 mmol/L (98-107); Potassium 3.5 mmol/L (3.5-5.1); Sodium 137 mmol/L (136-145)
[2021-02-11 07:13] LABS: ALT (SGPT) 13 U/L (8-55); AST (SGOT) 88 U/L (5-34); Albumin 2.5 g/dL (3.4-4.8); Alkaline Phosphatase 90 U/L (40-110); Bilirubin, Total 0.4 mg/dL (0.2-1.2); Globulin 2.8 g/dL (2.4-3.5); Glucose 94 mg/dL (83-110); Protein, Total 5.3 g/dL (5.8-8.1)
[2021-02-11] MEDS ORDERED: Potassium Chloride 40 MEQ in Sodium Chloride 0.9% 250 ML 250 ML IVPB SCH (08:00)
[2021-02-11 08:12] LABS: Actual Bicarbonate (HCO3a) 21.5 mEq/L (22-28); Calcium, Ionized (arterial) 1.06 mmol/L (1.12-1.30); Carboxyhemoglobin (COHb) 0.3 gm% (0.0-3.0); Hemoglobin (Hb) 11.9 g/dL (12.0-16.0); O2 Tension (PaO2), arterial 98.7 mmHg (> 70.0); Potassium - ABG Lab 3.32 mmol/L (3.70-5.30); pH, Arterial 7.54 (7.35-7.45)
[2021-02-11 08:13] LABS: Puncture Site RA
[2021-02-11] MEDS: Enoxaparin Sodium 30 MG/0.3 ML SYRINGE SC SCH (09:42)
[2021-02-11] MEDS: Pantoprazole 40 MG VIAL IVP SCH (09:47)
[2021-02-11 12:55] LABS: Potassium 4.5 mmol/L (3.5-5.1)
[2021-02-11] MEDS: Lactated Ringer's 1,000 ML IV SCH (14:22)
[2021-02-11] MEDS: Cefepime 1 GM in Sodium Chloride 0.9% 100 ML IVPB SCH (15:00)
[2021-02-11] MEDS ORDERED: niCARdipine 50 MG in Sodium Chloride 0.9% 250 ML 230 ML IV SCH (15:15)
[2021-02-11] MEDS: Acetaminophen 325 MG TAB PO PRN (21:45)
[2021-02-12] MEDS ORDERED: Fentanyl CADD 100 ML ONE (03:00)
[2021-02-12] MEDS: Fentanyl CADD 100 ML IV SCH (03:03)
[2021-02-12] MEDS: Cefepime 1 GM in Sodium Chloride 0.9% 100 ML IVPB SCH ×2 (03:18→14:53)
[2021-02-12 03:57] LABS: #Eosinphils 0.1 thou/uL (0.0-0.7); #Lymphocytes 1.8 thou/uL (1.20-3.40); #Monocytes 0.9 thou/uL (0.11-0.59); #Neutrophils 5.9 thou/uL (1.40-6.50); %Basophils 0.1 % (0.0-1.0); %Eosinophils 0.6 % (0.0-10.0); %Lymphocytes 20.3 % (21.0-51.0); %Monocytes 10.7 % (0.0-10.0); %Neutrophils 68.3 % (42.0-75.0); Hemoglobin 11.9 g/dL (12.0-16.0); Mean Corpuscular HGB CONC 32.6 g/dL (32.0-36.0); Mean Corpuscular Hemoglobin 29.6 pg (27.0-31.0); Mean Platelet Volume 8.4 fL (7.4-10.4); Platelet Count 142 thou/uL (130-400); RBC Distribution Width 13.3 % (11.5-14.5); Red Blood Cell (RBC) Count 4.02 mill/uL (4.20-5.40); White Blood Cell (WBC) Count 8.7 thou/uL (4.8-10.8)
[2021-02-12 04:18] LABS: Anion Gap 14 mmol/L (10-20); BUN (Urea Nitrogen) 45 mg/dL (9.8-20.1); Calc. Creatinine Clearance 24 mL/min (70-130); Calcium 8.5 mg/dL (7.8-10.44); Carbon Dioxide 20 mmol/L (23-31); Chloride 107 mmol/L (98-107); Glucose 114 mg/dL (83-110); Potassium 4.1 mmol/L (3.5-5.1); Sodium 137 mmol/L (136-145)
[2021-02-12] MEDS: Lactated Ringer's 1,000 ML IV SCH ×3 (04:40→19:57)
[2021-02-12 07:30] LABS: Actual Bicarbonate (HCO3a) 22.7 mEq/L (22-28); Base Excess (BEa) -1.5 mEq/L (-2.0 to +3.0); CO2 Tension 36.1 mmHg (35.0-45.0); Calcium, Ionized (arterial) 1.14 mmol/L (1.12-1.30); Carboxyhemoglobin (COHb) 0.3 gm% (0.0-3.0); Hemoglobin (Hb) 11.5 g/dL (12.0-16.0); O2 Tension (PaO2), arterial 97.1 mmHg (> 70.0); Potassium - ABG Lab 4.09 mmol/L (3.70-5.30); pH, Arterial 7.42 (7.35-7.45)
[2021-02-12 07:31] LABS: Puncture Site RRA
[2021-02-12 07:32] LABS: ALV-art Gradient 142.975 mmHg (0-20)
[2021-02-12] MEDS: Enoxaparin Sodium 30 MG/0.3 ML SYRINGE SC SCH (08:59)
[2021-02-12] MEDS: Pantoprazole 40 MG VIAL IVP SCH (09:00)
[2021-02-13] MEDS: Cefepime 1 GM in Sodium Chloride 0.9% 100 ML IVPB SCH (02:42)
[2021-02-13 03:53] LABS: #Lymphocytes 1.3 thou/uL (1.20-3.40); #Monocytes 1.3 thou/uL (0.11-0.59); #Neutrophils 10.7 thou/uL (1.40-6.50); %Basophils 0.2 % (0.0-1.0); %Eosinophils 0.1 % (0.0-10.0); %Monocytes 9.6 % (0.0-10.0); %Neutrophils 80.1 % (42.0-75.0); Mean Corpuscular HGB CONC 30.9 g/dL (32.0-36.0); Mean Corpuscular Hemoglobin 27.9 pg (27.0-31.0); Mean Corpuscular Volume 90.4 fL (78.0-98.0); Mean Platelet Volume 9.1 fL (7.4-10.4); Platelet Count 166 thou/uL (130-400); RBC Distribution Width 13.4 % (11.5-14.5); Red Blood Cell (RBC) Count 3.93 mill/uL (4.20-5.40); White Blood Cell (WBC) Count 13.4 thou/uL (4.8-10.8)
[2021-02-13 04:14] LABS: Anion Gap 13 mmol/L (10-20); BUN (Urea Nitrogen) 58 mg/dL (9.8-20.1); Calc. Creatinine Clearance 28 mL/min (70-130); Calcium 8.6 mg/dL (7.8-10.44); Carbon Dioxide 19 mmol/L (23-31); Chloride 108 mmol/L (98-107); Glucose 160 mg/dL (83-110); Sodium 135 mmol/L (136-145)
[2021-02-13 07:08] LABS: ALV-art Gradient 139.275 mmHg (0-20); Actual Bicarbonate (HCO3a) 21.5 mEq/L (22-28); Base Excess (BEa) -1.6 mEq/L (-2.0 to +3.0); CO2 Tension 30.9 mmHg (35.0-45.0); Calcium, Ionized (arterial) 1.14 mmol/L (1.12-1.30); Carboxyhemoglobin (COHb) 0.3 gm% (0.0-3.0); Hemoglobin (Hb) 10.8 g/dL (12.0-16.0); O2 Tension (PaO2), arterial 107.3 mmHg (> 70.0); Potassium - ABG Lab 4.35 mmol/L (3.70-5.30); Puncture Site RRA; pH, Arterial 7.46 (7.35-7.45)
[2021-02-13] MEDS: Enoxaparin Sodium 30 MG/0.3 ML SYRINGE SC SCH (09:01)
[2021-02-13] MEDS: Pantoprazole 40 MG VIAL IVP SCH (09:01)
[2021-02-13] MEDS: Aspirin Chewable 81 MG TAB PO SCH (09:32)
[2021-02-13] MEDS: Scopolamine 1.5 mg/72 hour Patch TD SCH (09:32)
[2021-02-14] MEDS: Cefepime 0.5 GM, Admixture Fee 1 EACH in Sodium Chloride 0.9% 100 ML IVPB SCH (03:25)
[2021-02-14 04:13] LABS: Anion Gap 16 mmol/L (10-20); BUN (Urea Nitrogen) 73 mg/dL (9.8-20.1); Calc. Creatinine Clearance 24 mL/min (70-130); Calcium 8.8 mg/dL (7.8-10.44); Carbon Dioxide 19 mmol/L (23-31); Chloride 108 mmol/L (98-107); Glucose 157 mg/dL (83-110); Potassium 4.5 mmol/L (3.5-5.1); Sodium 138 mmol/L (136-145)
[2021-02-14 04:21] LABS: Hemoglobin 10.4 g/dL (12.0-16.0); Mean Corpuscular HGB CONC 32.1 g/dL (32.0-36.0); Mean Corpuscular Volume 90.1 fL (78.0-98.0); Mean Platelet Volume 8.8 fL (7.4-10.4); Platelet Count 202 thou/uL (130-400); RBC Distribution Width 13.3 % (11.5-14.5); Red Blood Cell (RBC) Count 3.59 mill/uL (4.20-5.40); White Blood Cell (WBC) Count 14.9 thou/uL (4.8-10.8)
[2021-02-14 04:39] LABS: Band 2 % (5-11); Lymphocytes 17 % (21-51); MDiff Complete? YES; Monocytes 5 % (0-10); Neutrophil 76 % (42-75)
[2021-02-14 07:53] LABS: Actual Bicarbonate (HCO3a) 17.6 mEq/L (22-28); Base Excess (BEa) -4.7 mEq/L (-2.0 to +3.0); Calcium, Ionized (arterial) 1.13 mmol/L (1.12-1.30); Carboxyhemoglobin (COHb) 0.3 gm% (0.0-3.0); Hemoglobin (Hb) 10.8 g/dL (12.0-16.0); O2 Tension (PaO2), arterial 130.9 mmHg (> 70.0); Potassium - ABG Lab 4.77 mmol/L (3.70-5.30); pH, Arterial 7.47 (7.35-7.45)
[2021-02-14 08:03] LABS: CO2 Tension 24.6 mmHg (35.0-45.0); Puncture Site RRA
[2021-02-14] MEDS: Pantoprazole 40 MG VIAL IVP SCH (08:55)
[2021-02-14] MEDS: Aspirin Chewable 81 MG TAB PO SCH (08:55)
[2021-02-14] MEDS: Enoxaparin Sodium 30 MG/0.3 ML SYRINGE SC SCH (08:55)
[2021-02-14] MEDS: Lorazepam 2 MG/ML VIAL SLOW IVP PRN (09:42)
[2021-02-14] MEDS ORDERED: Fentanyl CADD 100 ML ONE (10:32)
[2021-02-14] MEDS: Fentanyl CADD 100 ML IV SCH (10:35)
[2021-02-15] MEDS: Sodium Chloride 0.9% 1,000 ML IV SCH ×2 (00:20→06:13)
[2021-02-15] MEDS: Cefepime 0.5 GM, Admixture Fee 1 EACH in Sodium Chloride 0.9% 100 ML IVPB SCH (02:41)
[2021-02-15 04:27] LABS: Anion Gap 16 mmol/L (10-20); BUN (Urea Nitrogen) 98 mg/dL (9.8-20.1); Calc. Creatinine Clearance 20 mL/min (70-130); Calcium 8.1 mg/dL (7.8-10.44); Carbon Dioxide 16 mmol/L (23-31); Chloride 117 mmol/L (98-107); Glucose 133 mg/dL (83-110); Potassium 4.8 mmol/L (3.5-5.1); Sodium 144 mmol/L (136-145)
[2021-02-15 06:02] LABS: Band 3 % (5-11); Hemoglobin 8.8 g/dL (12.0-16.0); Lymphocytes 13 % (21-51); MDiff Complete? YES; Mean Corpuscular HGB CONC 31.3 g/dL (32.0-36.0); Mean Corpuscular Hemoglobin 28.8 pg (27.0-31.0); Mean Corpuscular Volume 91.9 fL (78.0-98.0); Monocytes 11 % (0-10); Myelocyte 1 % (0-0); Neutrophil 72 % (42-75); Nucleated RBC 6 % (0); Platelet Count 194 thou/uL (130-400); Platelet Morphology Comment Appears Adequate; RBC Distribution Width 13.5 % (11.5-14.5); RBC Morphology Normal; Red Blood Cell (RBC) Count 3.05 mill/uL (4.20-5.40); White Blood Cell (WBC) Count 14.6 thou/uL (4.8-10.8)
[2021-02-15 08:07] LABS: Actual Bicarbonate (HCO3a) 13.4 mEq/L (22-28); Base Excess (BEa) -11.1 mEq/L (-2.0 to +3.0); Calcium, Ionized (arterial) 1.15 mmol/L (1.12-1.30); Carboxyhemoglobin (COHb) 0.3 gm% (0.0-3.0); Hemoglobin (Hb) 9.8 g/dL (12.0-16.0); O2 Tension (PaO2), arterial 108.1 mmHg (> 70.0); Potassium - ABG Lab 4.89 mmol/L (3.70-5.30); pH, Arterial 7.33 (7.35-7.45)
[2021-02-15 08:44] LABS: Puncture Site RRA
[2021-02-15] MEDS: Aspirin Chewable 81 MG TAB PO SCH (09:57)
[2021-02-15] MEDS: Enoxaparin Sodium 30 MG/0.3 ML SYRINGE SC SCH (09:57)
[2021-02-15] MEDS: Pantoprazole 40 MG VIAL IVP SCH (09:58)
[2021-02-15] MEDS ORDERED: Fentanyl CADD 100 ML ONE (23:29)
[2021-02-15] MEDS: Fentanyl CADD 100 ML IV SCH (23:34)
[2021-02-16 08:24] LABS: Actual Bicarbonate (HCO3a) 4.4 mEq/L (22-28); Base Excess (BEa) -23.2 mEq/L (-2.0 to +3.0); Calcium, Ionized (arterial) 1.16 mmol/L (1.12-1.30); Carboxyhemoglobin (COHb) 0.2 gm% (0.0-3.0); Hemoglobin (Hb) 11.3 g/dL (12.0-16.0); O2 Tension (PaO2), arterial 95.7 mmHg (> 70.0); Potassium - ABG Lab 6.11 mmol/L (3.70-5.30)
[2021-02-16 08:34] LABS: Band 10 % (5-11); Hemoglobin 9.7 g/dL (12.0-16.0); Lymphocytes 5 % (21-51); MDiff Complete? YES; Mean Corpuscular HGB CONC 30.9 g/dL (32.0-36.0); Mean Corpuscular Hemoglobin 29.8 pg (27.0-31.0); Mean Corpuscular Volume 96.5 fL (78.0-98.0); Mean Platelet Volume 8.9 fL (7.4-10.4); Metamyelocyte 2 % (0-0); Monocytes 6 % (0-10); Neutrophil 77 % (42-75); Nucleated RBC 6 % (0); Platelet Count 235 thou/uL (130-400); Polychromasia SLIGHT = 2-3 cells (100X) (0-2/hpf); RBC Distribution Width 14.2 % (11.5-14.5); Red Blood Cell (RBC) Count 3.26 mill/uL (4.20-5.40); White Blood Cell (WBC) Count 27.8 thou/uL (4.8-10.8)
[2021-02-16 08:51] LABS: ALT (SGPT) 605 U/L (8-55); AST (SGOT) 1498 U/L (5-34); Albumin 2.9 g/dL (3.4-4.8); Alkaline Phosphatase 86 U/L (40-110); BUN (Urea Nitrogen) 121 mg/dL (9.8-20.1); Bilirubin, Total 1.8 mg/dL (0.2-1.2); Calc. Creatinine Clearance 13 mL/min (70-130); Calcium 8.5 mg/dL (7.8-10.44); Carbon Dioxide Less than 8 mmol/L (23-31); Chloride 114 mmol/L (98-107); Globulin 3.1 g/dL (2.4-3.5); Glucose 30 mg/dL (83-110); Magnesium 3.2 mg/dL (1.6-2.6); Potassium 6.4 mmol/L (3.5-5.1); Sodium 146 mmol/L (136-145)
[2021-02-16] MEDS ORDERED: Dextrose 50% Abboject 50 ML SYRINGE ONE (09:04)
[2021-02-16 09:21] LABS: ALV-art Gradient 171.625 mmHg (0-20); CO2 Tension 14.3 mmHg (35.0-45.0); Puncture Site RRA
[2021-02-16] MEDS: Enoxaparin Sodium 30 MG/0.3 ML SYRINGE SC SCH (09:24)
[2021-02-16] MEDS: Aspirin Chewable 81 MG TAB PO SCH (09:25)
[2021-02-16] MEDS: Scopolamine 1.5 mg/72 hour Patch TD SCH (09:27)
[2021-02-16] MEDS: Pantoprazole 40 MG VIAL IVP SCH (09:31)
[2021-02-16] MEDS ORDERED: Sodium Bicarbonate 150 MEQ in Dextrose 5% in Water 1,000 ML IV SCH (10:00)
[2021-02-16] MEDS: Sodium Bicarbonate 150 MEQ in Dextrose 5% in Water 1,000 ML IV SCH ×2 (10:54→21:04)
[2021-02-16 12:12] LABS: Glucose POC Confirmation 114 mg/dl (83-110)
[2021-02-17 04:28] LABS: Hemoglobin 8.8 g/dL (12.0-16.0); Mean Corpuscular HGB CONC 32.6 g/dL (32.0-36.0); Mean Corpuscular Volume 92.1 fL (78.0-98.0); Mean Platelet Volume 9.2 fL (7.4-10.4); Platelet Count 209 thou/uL (130-400); RBC Distribution Width 14.1 % (11.5-14.5); Red Blood Cell (RBC) Count 2.94 mill/uL (4.20-5.40)
[2021-02-17 04:41] LABS: ALT (SGPT) 1458 U/L (8-55); Albumin 2.4 g/dL (3.4-4.8); Alkaline Phosphatase 86 U/L (40-110); Anion Gap 20 mmol/L (10-20); Bilirubin, Total 1.5 mg/dL (0.2-1.2); Calc. Creatinine Clearance 11 mL/min (70-130); Calcium 7.7 mg/dL (7.8-10.44); Carbon Dioxide 19 mmol/L (23-31); Chloride 112 mmol/L (98-107); Globulin 2.9 g/dL (2.4-3.5); Glucose 132 mg/dL (83-110); Magnesium 2.9 mg/dL (1.6-2.6); Potassium 4.8 mmol/L (3.5-5.1); Protein, Total 5.3 g/dL (5.8-8.1); Sodium 146 mmol/L (136-145)
[2021-02-17 04:52] LABS: BUN (Urea Nitrogen) 128 mg/dL (9.8-20.1)
[2021-02-17 05:32] LABS: Band 22 % (5-11); Lymphocytes 12 % (21-51); MDiff Complete? YES; Metamyelocyte 2 % (0-0); Monocytes 6 % (0-10); Neutrophil 58 % (42-75); Nucleated RBC 23 % (0); Polychromasia SLIGHT = 2-3 cells (100X) (0-2/hpf)
[2021-02-17 05:35] LABS: White Blood Cell (WBC) Count 13.6 thou/uL (4.8-10.8)
[2021-02-17 06:08] LABS: Phosphorus 5.1 mg/dL (2.3-4.7)
[2021-02-17 06:16] LABS: AST (SGOT) Greater than 3500 U/L (5-34)
[2021-02-17 08:28] LABS: Actual Bicarbonate (HCO3a) 17.6 mEq/L (22-28); Base Excess (BEa) -5.6 mEq/L (-2.0 to +3.0); CO2 Tension 26.7 mmHg (35.0-45.0); Calcium, Ionized (arterial) 1.03 mmol/L (1.12-1.30); Carboxyhemoglobin (COHb) 0.3 gm% (0.0-3.0); Hemoglobin (Hb) 9.3 g/dL (12.0-16.0); O2 Tension (PaO2), arterial 94.7 mmHg (> 70.0); Potassium - ABG Lab 4.34 mmol/L (3.70-5.30); pH, Arterial 7.44 (7.35-7.45)
[2021-02-17 08:29] LABS: ALV-art Gradient 157.125 mmHg (0-20); Puncture Site RRA
[2021-02-17] MEDS: Aspirin Chewable 81 MG TAB PO SCH (08:43)
[2021-02-17] MEDS: Pantoprazole 40 MG VIAL IVP SCH (08:44)
[2021-02-17] MEDS: Enoxaparin Sodium 30 MG/0.3 ML SYRINGE SC SCH (08:45)
[2021-02-17] MEDS: Sodium Bicarbonate 150 MEQ in Dextrose 5% in Water 1,000 ML IV SCH ×2 (09:19→21:24)
[2021-02-17 13:45] LABS: SARS-CoV-2 PCR by NAA Not Detected (NotDetected)
[2021-02-18] MEDS: Morphine 2 MG/ML VIAL SLOW IVP PRN (01:14)
[2021-02-18] MEDS: Lorazepam 2 MG/ML VIAL SLOW IVP PRN (03:04)
[2021-02-18] MEDS: Acetaminophen 325 MG TAB PO PRN (03:30)
[2021-02-18 05:00] LABS: Anion Gap 26 mmol/L (10-20); Calc. Creatinine Clearance 10 mL/min (70-130); Calcium 7.6 mg/dL (7.8-10.44); Carbon Dioxide 19 mmol/L (23-31); Chloride 103 mmol/L (98-107); Glucose 123 mg/dL (83-110); Potassium 4.5 mmol/L (3.5-5.1); Sodium 143 mmol/L (136-145)
[2021-02-18 05:12] LABS: BUN (Urea Nitrogen) 143 mg/dL (9.8-20.1)
[2021-02-18 05:54] LABS: Band 18 % (5-11); Lymphocytes 6 % (21-51); MDiff Complete? YES; Mean Corpuscular HGB CONC 33.7 g/dL (32.0-36.0); Mean Corpuscular Hemoglobin 30.5 pg (27.0-31.0); Mean Corpuscular Volume 90.4 fL (78.0-98.0); Mean Platelet Volume 9.7 fL (7.4-10.4); Monocytes 6 % (0-10); Neutrophil 70 % (42-75); Nucleated RBC 23 % (0); Platelet Count 208 thou/uL (130-400); Platelet Morphology Comment Appears Adequate; RBC Distribution Width 13.9 % (11.5-14.5); RBC Morphology Normal; Red Blood Cell (RBC) Count 2.96 mill/uL (4.20-5.40); White Blood Cell (WBC) Count 20.6 thou/uL (4.8-10.8)
[2021-02-18 08:44] LABS: Base Excess (BEa) 1.4 mEq/L (-2.0 to +3.0); CO2 Tension 29.9 mmHg (35.0-45.0); Calcium, Ionized (arterial) 0.96 mmol/L (1.12-1.30); Carboxyhemoglobin (COHb) 0.5 gm% (0.0-3.0); Hemoglobin (Hb) 8.2 g/dL (12.0-16.0); O2 Tension (PaO2), arterial 134.6 mmHg (> 70.0); Potassium - ABG Lab 4.07 mmol/L (3.70-5.30); pH, Arterial 7.52 (7.35-7.45)
[2021-02-18] MEDS: Cefepime 1 GM in Sodium Chloride 0.9% 100 ML IVPB SCH (09:01)
[2021-02-18] MEDS: Enoxaparin Sodium 30 MG/0.3 ML SYRINGE SC SCH (09:02)
[2021-02-18] MEDS: Aspirin Chewable 81 MG TAB PO SCH (09:02)
[2021-02-18] MEDS: Sodium Bicarbonate 150 MEQ in Dextrose 5% in Water 1,000 ML IV SCH ×2 (09:02→20:48)
[2021-02-18] MEDS: Pantoprazole 40 MG VIAL IVP SCH (09:03)
[2021-02-18 09:09] LABS: ALV-art Gradient 113.225 mmHg (0-20); Puncture Site LRA
[2021-02-19] MEDS: Morphine 2 MG/ML VIAL SLOW IVP PRN (01:16)
[2021-02-19 04:39] LABS: Anion Gap 19 mmol/L (10-20); Calc. Creatinine Clearance 93 mL/min (70-130); Calcium 7.8 mg/dL (7.8-10.44); Carbon Dioxide 31 mmol/L (23-31); Chloride 96 mmol/L (98-107); Glucose 134 mg/dL (83-110); Potassium 3.9 mmol/L (3.5-5.1); Sodium 142 mmol/L (136-145)
[2021-02-19 04:50] LABS: BUN (Urea Nitrogen) 135 mg/dL (9.8-20.1)
[2021-02-19 05:01] LABS: Hemoglobin 9.1 g/dL (12.0-16.0); Mean Corpuscular HGB CONC 32.7 g/dL (32.0-36.0); Mean Corpuscular Hemoglobin 29.4 pg (27.0-31.0); Platelet Count 188 thou/uL (130-400); RBC Distribution Width 14.2 % (11.5-14.5)
[2021-02-19] MEDS: Lorazepam 2 MG/ML VIAL SLOW IVP PRN (05:42)
[2021-02-19 06:31] LABS: Band 13 % (5-11); Lymphocytes 1 % (21-51); MDiff Complete? YES; Metamyelocyte 1 % (0-0); Monocytes 5 % (0-10); Neutrophil 80 % (42-75); Nucleated RBC 4 % (0); Polychromasia SLIGHT = 2-3 cells (100X) (0-2/hpf); White Blood Cell (WBC) Count 18.1 thou/uL (4.8-10.8)
[2021-02-19] MEDS: Cefepime 1 GM in Sodium Chloride 0.9% 100 ML IVPB SCH (07:16)
[2021-02-19] MEDS: Sodium Chloride 0.45% 1,000 ML IV SCH ×2 (07:59→17:46)
[2021-02-19 08:16] LABS: Actual Bicarbonate (HCO3a) 31.8 mEq/L (22-28); CO2 Tension 32.4 mmHg (35.0-45.0); Hemoglobin (Hb) 9.7 g/dL (12.0-16.0); O2 Tension (PaO2), arterial 86.8 mmHg (> 70.0); Potassium - ABG Lab 3.83 mmol/L (3.70-5.30)
[2021-02-19 08:19] LABS: Puncture Site RRA; pH, Arterial 7.61 (7.35-7.45)
[2021-02-19] MEDS: Pantoprazole 40 MG VIAL IVP SCH (08:34)
[2021-02-19] MEDS: Enoxaparin Sodium 30 MG/0.3 ML SYRINGE SC SCH (08:34)
[2021-02-19] MEDS: Aspirin Chewable 81 MG TAB PO SCH (08:34)
[2021-02-20] MEDS: Morphine 2 MG/ML VIAL SLOW IVP PRN ×2 (00:08→19:26)
[2021-02-20] MEDS: Sodium Chloride 0.45% 1,000 ML IV SCH ×3 (04:13→23:53)
[2021-02-20 04:21] LABS: Hemoglobin 9.1 g/dL (12.0-16.0); Mean Corpuscular HGB CONC 32.6 g/dL (32.0-36.0); Mean Corpuscular Hemoglobin 29.9 pg (27.0-31.0); Mean Corpuscular Volume 91.6 fL (78.0-98.0); Mean Platelet Volume 10.5 fL (7.4-10.4); Platelet Count 178 thou/uL (130-400); RBC Distribution Width 14.4 % (11.5-14.5); Red Blood Cell (RBC) Count 3.05 mill/uL (4.20-5.40); White Blood Cell (WBC) Count 19.8 thou/uL (4.8-10.8)
[2021-02-20 04:36] LABS: Anion Gap 18 mmol/L (10-20); Calc. Creatinine Clearance 11 mL/min (70-130); Calcium 7.9 mg/dL (7.8-10.44); Carbon Dioxide 29 mmol/L (23-31); Chloride 97 mmol/L (98-107); Glucose 114 mg/dL (83-110); Potassium 3.9 mmol/L (3.5-5.1); Sodium 140 mmol/L (136-145)
[2021-02-20 04:47] LABS: Band 13 % (5-11); Lymphocytes 4 % (21-51); MDiff Complete? YES; Monocytes 10 % (0-10); Neutrophil 73 % (42-75); Platelet Morphology Comment Appears Adequate; RBC Morphology Normal
[2021-02-20 04:48] LABS: BUN (Urea Nitrogen) 149 mg/dL (9.8-20.1)
[2021-02-20 07:08] LABS: Actual Bicarbonate (HCO3a) 30.6 mEq/L (22-28); Base Excess (BEa) 7.9 mEq/L (-2.0 to +3.0); CO2 Tension 35.2 mmHg (35.0-45.0); Calcium, Ionized (arterial) 1.04 mmol/L (1.12-1.30); Carboxyhemoglobin (COHb) 0.7 gm% (0.0-3.0); Hemoglobin (Hb) 9.7 g/dL (12.0-16.0); O2 Tension (PaO2), arterial 88.6 mmHg (> 70.0); Potassium - ABG Lab 3.68 mmol/L (3.70-5.30)
[2021-02-20 07:09] LABS: Puncture Site RBA; pH, Arterial 7.56 (7.35-7.45)
[2021-02-20] MEDS: Cefepime 1 GM in Sodium Chloride 0.9% 100 ML IVPB SCH (07:56)
[2021-02-20] MEDS: Aspirin Chewable 81 MG TAB PO SCH (08:00)
[2021-02-20] MEDS: Enoxaparin Sodium 30 MG/0.3 ML SYRINGE SC SCH (08:00)
[2021-02-20] MEDS: Pantoprazole 40 MG VIAL IVP SCH (08:00)
[2021-02-21 04:15] LABS: Anion Gap 20 mmol/L (10-20); Calc. Creatinine Clearance 13 mL/min (70-130); Carbon Dioxide 26 mmol/L (23-31); Chloride 95 mmol/L (98-107); Glucose 107 mg/dL (83-110); Potassium 3.8 mmol/L (3.5-5.1); Sodium 137 mmol/L (136-145)
[2021-02-21 04:18] LABS: Hemoglobin 9.5 g/dL (12.0-16.0); Mean Corpuscular HGB CONC 32.5 g/dL (32.0-36.0); Mean Corpuscular Hemoglobin 29.9 pg (27.0-31.0); Mean Corpuscular Volume 91.8 fL (78.0-98.0); Mean Platelet Volume 10.8 fL (7.4-10.4); Platelet Count 173 thou/uL (130-400); RBC Distribution Width 14.4 % (11.5-14.5); Red Blood Cell (RBC) Count 3.19 mill/uL (4.20-5.40); White Blood Cell (WBC) Count 16.6 thou/uL (4.8-10.8)
[2021-02-21 04:26] LABS: BUN (Urea Nitrogen) 158 mg/dL (9.8-20.1)
[2021-02-21 06:10] LABS: Band 3 % (5-11); Lymphocytes 7 % (21-51); MDiff Complete? YES; Monocytes 9 % (0-10); Neutrophil 80 % (42-75); Platelet Morphology Comment Appears Adequate; RBC Morphology Normal; Reactive Lymphocytes 1 % (0-10)
[2021-02-21 07:35] LABS: Actual Bicarbonate (HCO3a) 25.6 mEq/L (22-28); Base Excess (BEa) 3.1 mEq/L (-2.0 to +3.0); CO2 Tension 31.4 mmHg (35.0-45.0); Calcium, Ionized (arterial) 1.03 mmol/L (1.12-1.30); Carboxyhemoglobin (COHb) 0.9 gm% (0.0-3.0); Hemoglobin (Hb) 10.1 g/dL (12.0-16.0); O2 Tension (PaO2), arterial 79.7 mmHg (> 70.0); Potassium - ABG Lab 3.34 mmol/L (3.70-5.30); pH, Arterial 7.53 (7.35-7.45)
[2021-02-21 07:54] LABS: Puncture Site RRA
[2021-02-21] MEDS: Cefepime 1 GM in Sodium Chloride 0.9% 100 ML IVPB SCH (08:29)
[2021-02-21] MEDS: Aspirin Chewable 81 MG TAB PO SCH (08:29)
[2021-02-21] MEDS: Pantoprazole 40 MG VIAL IVP SCH (08:29)
[2021-02-21] MEDS: Enoxaparin Sodium 30 MG/0.3 ML SYRINGE SC SCH (08:29)
[2021-02-21] MEDS: Sodium Chloride 0.45% 1,000 ML IV SCH ×2 (10:11→21:04)
[2021-02-22 07:32] LABS: Actual Bicarbonate (HCO3a) 29.4 mEq/L (22-28); Base Excess (BEa) 6.6 mEq/L (-2.0 to +3.0); CO2 Tension 34.8 mmHg (35.0-45.0); Calcium, Ionized (arterial) 1.04 mmol/L (1.12-1.30); Carboxyhemoglobin (COHb) 0.4 gm% (0.0-3.0); O2 Tension (PaO2), arterial 90.7 mmHg (> 70.0); Potassium - ABG Lab 2.88 mmol/L (3.70-5.30); pH, Arterial 7.54 (7.35-7.45)
[2021-02-22 07:34] LABS: Puncture Site RRA
[2021-02-22] MEDS: Sodium Chloride 0.45% 1,000 ML IV SCH (07:47)
[2021-02-22] MEDS: Cefepime 1 GM in Sodium Chloride 0.9% 100 ML IVPB SCH (07:47)
[2021-02-22] MEDS: Pantoprazole 40 MG VIAL IVP SCH (08:06)
[2021-02-22] MEDS: Aspirin Chewable 81 MG TAB PO SCH (08:06)
[2021-02-22] MEDS: Enoxaparin Sodium 30 MG/0.3 ML SYRINGE SC SCH (08:06)
[2021-02-22 11:24] LABS: Anion Gap 18 mmol/L (10-20); BUN (Urea Nitrogen) 154 mg/dL (9.8-20.1); Calc. Creatinine Clearance 15 mL/min (70-130); Calcium 7.8 mg/dL (7.8-10.44); Carbon Dioxide 28 mmol/L (23-31); Chloride 98 mmol/L (98-107); Glucose 111 mg/dL (83-110); Potassium 3.5 mmol/L (3.5-5.1); Sodium 140 mmol/L (136-145)
[2021-02-22 11:26] LABS: Albumin 1.8 g/dL (3.4-4.8); Bilirubin, Total 1.7 mg/dL (0.2-1.2); Globulin 3.1 g/dL (2.4-3.5); Protein, Total 4.9 g/dL (5.8-8.1)
[2021-02-22 11:27] LABS: ALT (SGPT) 323 U/L (8-55); AST (SGOT) 186 U/L (5-34); Alkaline Phosphatase 102 U/L (40-110)
[2021-02-22] MEDS ORDERED: Potassium Chloride 40 MEQ in Sodium Chloride 0.9% 250 ML 250 ML IVPB SCH (13:00)
[2021-02-22 13:19] LABS: Hemoglobin 9.4 g/dL (12.0-16.0); Mean Corpuscular HGB CONC 31.4 g/dL (32.0-36.0); Mean Corpuscular Volume 92.4 fL (78.0-98.0); Mean Platelet Volume 10.8 fL (7.4-10.4); Platelet Count 165 thou/uL (130-400); RBC Distribution Width 15.8 % (11.5-14.5); Red Blood Cell (RBC) Count 3.23 mill/uL (4.20-5.40)
[2021-02-22 13:20] LABS: #Eosinphils 0.1 thou/uL (0.0-0.7); #Lymphocytes 0.5 thou/uL (1.20-3.40); #Neutrophils 14.5 thou/uL (1.40-6.50); %Eosinophils 0.4 % (0.0-10.0); %Lymphocytes 2.9 % (21.0-51.0); %Monocytes 11.6 % (0.0-10.0); %Neutrophils 85.1 % (42.0-75.0)
[2021-02-22] MEDS: Morphine 2 MG/ML VIAL SLOW IVP PRN (21:43)
[2021-02-23] MEDS: Lorazepam 2 MG/ML VIAL SLOW IVP PRN ×3 (00:13→20:39)
[2021-02-23] MEDS: Cefepime 1 GM in Sodium Chloride 0.9% 100 ML IVPB SCH (07:45)
[2021-02-23 07:52] LABS: Actual Bicarbonate (HCO3a) 29.4 mEq/L (22-28); CO2 Tension 33.5 mmHg (35.0-45.0); Calcium, Ionized (arterial) 1.05 mmol/L (1.12-1.30); Carboxyhemoglobin (COHb) 0.9 gm% (0.0-3.0); O2 Tension (PaO2), arterial 80.2 mmHg (> 70.0); Potassium - ABG Lab 2.69 mmol/L (3.70-5.30)
[2021-02-23] MEDS: Aspirin Chewable 81 MG TAB PO SCH (08:22)
[2021-02-23] MEDS: Pantoprazole 40 MG VIAL IVP SCH (08:22)
[2021-02-23 08:25] LABS: pH, Arterial 7.56 (7.35-7.45)
[2021-02-23 08:26] LABS: ALV-art Gradient 198.775 mmHg (0-20); Puncture Site RRA
[2021-02-23 10:47] LABS: Hemoglobin 9.5 g/dL (12.0-16.0); Mean Corpuscular HGB CONC 31.6 g/dL (32.0-36.0); Mean Corpuscular Hemoglobin 29.3 pg (27.0-31.0); Mean Corpuscular Volume 92.8 fL (78.0-98.0); Mean Platelet Volume 10.9 fL (7.4-10.4); Platelet Count 196 thou/uL (130-400); RBC Distribution Width 16.3 % (11.5-14.5); Red Blood Cell (RBC) Count 3.25 mill/uL (4.20-5.40); White Blood Cell (WBC) Count 18.4 thou/uL (4.8-10.8)
[2021-02-23] MEDS: Enoxaparin Sodium 30 MG/0.3 ML SYRINGE SC SCH (10:58)
[2021-02-23 11:00] LABS: Anion Gap 17 mmol/L (10-20); Calc. Creatinine Clearance 19 mL/min (70-130); Calcium 7.9 mg/dL (7.8-10.44); Carbon Dioxide 27 mmol/L (23-31); Chloride 102 mmol/L (98-107); Glucose 120 mg/dL (83-110); Sodium 143 mmol/L (136-145)
[2021-02-23 11:09] LABS: Potassium 2.9 mmol/L (3.5-5.1)
[2021-02-23 11:12] LABS: BUN (Urea Nitrogen) 132 mg/dL (9.8-20.1)
[2021-02-23 11:59] LABS: Anisocytosis SLIGHT = 6-15 cells (100X) (0-5/hpf); Band 1 % (5-11); Lymphocytes 5 % (21-51); MDiff Complete? YES; Monocytes 7 % (0-10); Neutrophil 87 % (42-75); Platelet Morphology Comment Appears Adequate; Polychromasia SLIGHT = 2-3 cells (100X) (0-2/hpf)
[2021-02-23] MEDS ORDERED: Potassium Chloride 40 MEQ in Sodium Chloride 0.9% 250 ML 250 ML IVPB SCH ×2 (12:00→13:00)
[2021-02-24] MEDS: Lorazepam 2 MG/ML VIAL SLOW IVP PRN (02:24)
[2021-02-24 04:33] LABS: Mean Corpuscular HGB CONC 32.1 g/dL (32.0-36.0); Mean Corpuscular Hemoglobin 29.8 pg (27.0-31.0); Mean Corpuscular Volume 92.8 fL (78.0-98.0); Platelet Count 207 thou/uL (130-400); RBC Distribution Width 16.6 % (11.5-14.5); Red Blood Cell (RBC) Count 3.03 mill/uL (4.20-5.40); White Blood Cell (WBC) Count 19.5 thou/uL (4.8-10.8)
[2021-02-24 04:34] LABS: Hypochromia SLIGHT = 6-15 cells (100X) (0-5/hpf); Lymphocytes 8 % (21-51); MDiff Complete? YES; Monocytes 27 % (0-10); Neutrophil 65 % (42-75); Platelet Morphology Comment Appears Adequate
[2021-02-24 06:24] LABS: Chloride 103 mmol/L (98-107); Potassium 3.5 mmol/L (3.5-5.1); Sodium 144 mmol/L (136-145)
[2021-02-24 06:25] LABS: Glucose 108 mg/dL (83-110)
[2021-02-24 06:26] LABS: Anion Gap 17 mmol/L (10-20); Carbon Dioxide 28 mmol/L (23-31)
[2021-02-24 06:28] LABS: Calc. Creatinine Clearance 20 mL/min (70-130)
[2021-02-24] MEDS: Cefepime 1 GM in Sodium Chloride 0.9% 100 ML IVPB SCH (07:16)
[2021-02-24 07:32] LABS: Actual Bicarbonate (HCO3a) 29.8 mEq/L (22-28); Base Excess (BEa) 7.2 mEq/L (-2.0 to +3.0); Calcium, Ionized (arterial) 1.09 mmol/L (1.12-1.30); Carboxyhemoglobin (COHb) 1.4 gm% (0.0-3.0); Hemoglobin (Hb) 8.9 g/dL (12.0-16.0); O2 Tension (PaO2), arterial 74.4 mmHg (> 70.0); Potassium - ABG Lab 2.92 mmol/L (3.70-5.30)
[2021-02-24 07:33] LABS: Puncture Site RRA; pH, Arterial 7.56 (7.35-7.45)
[2021-02-24] MEDS: Pantoprazole 40 MG VIAL IVP SCH (08:58)
[2021-02-24] MEDS: Aspirin Chewable 81 MG TAB PO SCH (08:58)
[2021-02-24] MEDS: Enoxaparin Sodium 30 MG/0.3 ML SYRINGE SC SCH (08:58)
[2021-02-25 04:50] LABS: Anion Gap 18 mmol/L (10-20); Calc. Creatinine Clearance 22 mL/min (70-130); Calcium 8.1 mg/dL (7.8-10.44); Carbon Dioxide 26 mmol/L (23-31); Chloride 106 mmol/L (98-107); Glucose 143 mg/dL (83-110); Potassium 3.3 mmol/L (3.5-5.1); Sodium 147 mmol/L (136-145)
[2021-02-25 05:01] LABS: BUN (Urea Nitrogen) 119 mg/dL (9.8-20.1)
[2021-02-25 05:05] LABS: Band 2 % (5-11); Hemoglobin 8.9 g/dL (12.0-16.0); Hypochromia SLIGHT = 6-15 cells (100X) (0-5/hpf); Lymphocytes 4 % (21-51); MDiff Complete? YES; Mean Corpuscular HGB CONC 31.5 g/dL (32.0-36.0); Mean Corpuscular Hemoglobin 29.6 pg (27.0-31.0); Mean Corpuscular Volume 93.9 fL (78.0-98.0); Mean Platelet Volume 10.5 fL (7.4-10.4); Monocytes 7 % (0-10); Neutrophil 86 % (42-75); Platelet Count 273 thou/uL (130-400); Platelet Morphology Comment Appears Adequate; RBC Distribution Width 16.4 % (11.5-14.5); Reactive Lymphocytes 1 % (0-10); Red Blood Cell (RBC) Count 3.02 mill/uL (4.20-5.40); White Blood Cell (WBC) Count 25.1 thou/uL (4.8-10.8)
[2021-02-25] MEDS: Sodium Chloride 0.45% 1,000 ML IV SCH (06:35)
[2021-02-25 08:03] LABS: Actual Bicarbonate (HCO3a) 29.9 mEq/L (22-28); Base Excess (BEa) 8.3 mEq/L (-2.0 to +3.0); CO2 Tension 30.3 mmHg (35.0-45.0); Calcium, Ionized (arterial) 1.11 mmol/L (1.12-1.30); Carboxyhemoglobin (COHb) 0.7 gm% (0.0-3.0); Hemoglobin (Hb) 9.2 g/dL (12.0-16.0); O2 Tension (PaO2), arterial 82.5 mmHg (> 70.0); Potassium - ABG Lab 3.07 mmol/L (3.70-5.30)
[2021-02-25 08:07] LABS: ALV-art Gradient 200.475 mmHg (0-20); Puncture Site LRA; pH, Arterial 7.61 (7.35-7.45)
[2021-02-25] MEDS: Cefepime 1 GM in Sodium Chloride 0.9% 100 ML IVPB SCH (08:17)
[2021-02-25] MEDS: Enoxaparin Sodium 30 MG/0.3 ML SYRINGE SC SCH (08:18)
[2021-02-25] MEDS: Aspirin Chewable 81 MG TAB PO SCH (08:18)
[2021-02-25] MEDS: Pantoprazole 40 MG VIAL IVP SCH (08:18)
[2021-02-25] MEDS ORDERED: Furosemide 20 MG/2 ML VIAL SLOW IVP SCH (08:45)
[2021-02-25] MEDS: Metoprolol Tartrate 25 MG TAB PO SCH ×2 (09:44→20:14)
[2021-02-25 13:34] LABS: SARS-CoV-2 PCR by NAA Not Detected (NotDetected)
[2021-02-26 04:34] LABS: Anion Gap 16 mmol/L (10-20); Calc. Creatinine Clearance 24 mL/min (70-130); Carbon Dioxide 28 mmol/L (23-31); Chloride 108 mmol/L (98-107); Sodium 149 mmol/L (136-145)
[2021-02-26 04:35] LABS: Calcium 8.2 mg/dL (7.8-10.44); Glucose 135 mg/dL (83-110)
[2021-02-26 04:43] LABS: Band 1 % (5-11); Hemoglobin 8.2 g/dL (12.0-16.0); Hypochromia SLIGHT = 6-15 cells (100X) (0-5/hpf); Lymphocytes 13 % (21-51); MDiff Complete? YES; Mean Corpuscular HGB CONC 30.4 g/dL (32.0-36.0); Mean Corpuscular Hemoglobin 28.9 pg (27.0-31.0); Mean Platelet Volume 10.3 fL (7.4-10.4); Monocytes 7 % (0-10); Neutrophil 79 % (42-75); Platelet Count 268 thou/uL (130-400); Platelet Morphology Comment Appears Adequate; Red Blood Cell (RBC) Count 2.85 mill/uL (4.20-5.40); White Blood Cell (WBC) Count 21.7 thou/uL (4.8-10.8)
[2021-02-26 05:00] LABS: BUN (Urea Nitrogen) 125 mg/dL (9.8-20.1)
[2021-02-26] MEDS ORDERED: Potassium Bicarbonate/Cit Ac 20 MEQ TAB PER TUBE SCH (08:00)
[2021-02-26] MEDS: Cefepime 1 GM in Sodium Chloride 0.9% 100 ML IVPB SCH (08:36)
[2021-02-26] MEDS: Aspirin Chewable 81 MG TAB PO SCH (08:40)
[2021-02-26] MEDS: Metoprolol Tartrate 25 MG TAB PO SCH ×2 (08:40→20:13)
[2021-02-26] MEDS: Enoxaparin Sodium 30 MG/0.3 ML SYRINGE SC SCH (08:41)
[2021-02-26] MEDS ORDERED: Pantoprazole 40 MG GRANULES PACKET PER TUBE SCH ×2 (09:00→23:00)
[2021-02-26 22:53] LABS: Hemoglobin 7.2 g/dL (12.0-16.0)
[2021-02-27 04:17] LABS: Anion Gap 13 mmol/L (10-20); Calc. Creatinine Clearance 26 mL/min (70-130); Calcium 7.8 mg/dL (7.8-10.44); Carbon Dioxide 29 mmol/L (23-31); Chloride 113 mmol/L (98-107); Glucose 110 mg/dL (83-110); Potassium 3.1 mmol/L (3.5-5.1); Sodium 152 mmol/L (136-145)
[2021-02-27 04:19] LABS: Band 2 % (5-11); Hemoglobin 6.2 g/dL (12.0-16.0); Hypochromia SLIGHT = 6-15 cells (100X) (0-5/hpf); Lymphocytes 12 % (21-51); MDiff Complete? YES; Mean Corpuscular Hemoglobin 29.8 pg (27.0-31.0); Mean Corpuscular Volume 96.2 fL (78.0-98.0); Mean Platelet Volume 9.8 fL (7.4-10.4); Monocytes 4 % (0-10); Neutrophil 82 % (42-75); Platelet Count 299 thou/uL (130-400); Platelet Morphology Comment Appears Adequate; RBC Distribution Width 15.7 % (11.5-14.5); Red Blood Cell (RBC) Count 2.08 mill/uL (4.20-5.40); White Blood Cell (WBC) Count 21.6 thou/uL (4.8-10.8)
[2021-02-27 04:30] LABS: BUN (Urea Nitrogen) 120 mg/dL (9.8-20.1)
[2021-02-27] MEDS ORDERED: Potassium Chloride 20 MEQ TAB PER TUBE SCH (09:00)
[2021-02-27] MEDS: Metoprolol Tartrate 25 MG TAB PO SCH ×2 (09:15→23:41)
[2021-02-27] MEDS: Pantoprazole 40 MG GRANULES PACKET PER TUBE SCH ×2 (09:16→21:24)
[2021-02-27] MEDS: Potassium Bicarbonate/Cit Ac 20 MEQ TAB PER TUBE SCH ×2 (09:19→21:25)
[2021-02-27 16:32] VITALS: BMI 25.2
[2021-02-28] MEDS: Metoprolol Tartrate 25 MG TAB PO SCH ×2 (08:24→20:53)
[2021-02-28] MEDS: Pantoprazole 40 MG GRANULES PACKET PER TUBE SCH ×2 (08:24→20:52)
[2021-03-01] MEDS: Pantoprazole 40 MG GRANULES PACKET PER TUBE SCH ×2 (08:09→20:42)
[2021-03-01] MEDS: Metoprolol Tartrate 25 MG TAB PO SCH ×2 (08:09→20:42)
[2021-03-02] MEDS: Metoprolol Tartrate 25 MG TAB PO SCH ×2 (08:16→21:03)
[2021-03-02] MEDS: Pantoprazole 40 MG GRANULES PACKET PER TUBE SCH ×2 (08:16→21:03)
[2021-03-02] MEDS ORDERED: Morphine 2 MG/ML VIAL SLOW IVP PRN (11:12)
[2021-03-02] MEDS ORDERED: Lorazepam 2 MG/ML VIAL SLOW IVP PRN (11:12)
[2021-03-02] MEDS ORDERED: Fentanyl BOLUS 250 ML IVPB PRN (11:13)
[2021-03-02] MEDS ORDERED: Fentanyl CADD 100 ML IV SCH (11:15)
[2021-03-02] MEDS ORDERED: Lorazepam 2 MG/ML VIAL SLOW IVP SCH (17:30)
[2021-03-02] MEDS: Lorazepam 2 MG/ML VIAL SLOW IVP PRN ×2 (17:41→18:31)
[2021-03-02] MEDS: Morphine 2 MG/ML VIAL SLOW IVP PRN ×2 (17:42→18:32)
[2021-03-03] MEDS: Lorazepam 2 MG/ML VIAL SLOW IVP PRN ×3 (01:11→16:43)
[2021-03-03] MEDS: Pantoprazole 40 MG GRANULES PACKET PER TUBE SCH (08:59)
[2021-03-03] MEDS: Metoprolol Tartrate 25 MG TAB PO SCH ×2 (08:59→19:43)
[2021-03-03] MEDS: Morphine 2 MG/ML VIAL SLOW IVP PRN ×2 (17:53→22:51)
[2021-03-04] MEDS: Morphine 2 MG/ML VIAL SLOW IVP PRN ×2 (01:22→06:13)
[2021-03-04] MEDS: Lorazepam 2 MG/ML VIAL SLOW IVP PRN ×5 (04:05→22:36)
[2021-03-04] MEDS: Metoprolol Tartrate 25 MG TAB PO SCH ×2 (08:33→20:27)
[2021-03-04] MEDS ORDERED: Dextrose 5% in Water 1,000 ML IV SCH (16:45)
[2021-03-04 18:15] LABS: ALT (SGPT) 44 U/L (8-55); AST (SGOT) 48 U/L (5-34); Albumin 2.5 g/dL (3.4-4.8); Alkaline Phosphatase 81 U/L (40-110); Anion Gap 14 mmol/L (10-20); BUN (Urea Nitrogen) 109 mg/dL (9.8-20.1); Bilirubin, Total 0.8 mg/dL (0.2-1.2); Calc. Creatinine Clearance 26 mL/min (70-130); Calcium 8.6 mg/dL (7.8-10.44); Carbon Dioxide 31 mmol/L (23-31); Chloride 123 mmol/L (98-107); Globulin 4.1 g/dL (2.4-3.5); Glucose 113 mg/dL (83-110); Potassium 4.1 mmol/L (3.5-5.1); Protein, Total 6.6 g/dL (5.8-8.1); Sodium 164 mmol/L (136-145)
[2021-03-04 18:28] LABS: Anisocytosis SLIGHT = 6-15 cells (100X) (0-5/hpf); Band 13 % (5-11); Hemoglobin 6.4 g/dL (12.0-16.0); Hypochromia SLIGHT = 6-15 cells (100X) (0-5/hpf); Lymphocytes 2 % (21-51); MDiff Complete? YES; Macrocytosis SLIGHT = 6-15 cells (100X) (0-5/hpf); Mean Corpuscular HGB CONC 30.7 g/dL (32.0-36.0); Mean Corpuscular Hemoglobin 32.1 pg (27.0-31.0); Mean Platelet Volume 8.6 fL (7.4-10.4); Monocytes 5 % (0-10); Neutrophil 80 % (42-75); Platelet Count 469 thou/uL (130-400); Platelet Morphology Comment Appears Increased; Polychromasia SLIGHT = 2-3 cells (100X) (0-2/hpf); Red Blood Cell (RBC) Count 1.99 mill/uL (4.20-5.40); White Blood Cell (WBC) Count 33.8 thou/uL (4.8-10.8)
[2021-03-04] MEDS: Dextrose 5% in Water 1,000 ML IV SCH (22:35)
[2021-03-05] MEDS: Lorazepam 2 MG/ML VIAL SLOW IVP PRN (00:45)
[2021-03-05] MEDS: Dextrose 5% in Water 1,000 ML IV SCH (07:20)
[2021-03-05 07:24] VITALS: BP 121/82; TEMP 97.6
[2021-03-05] MEDS: Metoprolol Tartrate 25 MG TAB PO SCH (09:00)
[2021-03-05 11:50] LABS: SARS-CoV-2 PCR by NAA Not Detected (NotDetected)
[2021-03-05] MEDS: Morphine 2 MG/ML VIAL SLOW IVP PRN ×2 (12:07→15:18)
== END 2021-03-05 17:52 | disposition hospice, inpatient (51) | DRG 242 ==
LOC: ERS 15:05 → CCU 17:38 → T4-B 03-02 20:41
PROVIDERS: ADMIT Internal Medicine Cardiovascular Disease; ATTEND Internal Medicine Cardiovascular Disease
PROC: 0BH17EZ Insertion of Endotracheal Airway into Trachea, Via Natural or Artificial Opening (ICD-10-PCS; principal; 2021-02-09)
PROC: 4A023N7 Measurement of Cardiac Sampling and Pressure, Left Heart, Percutaneous Approach (ICD-10-PCS; 2021-02-09)
PROC: 5A1955Z Respiratory Ventilation, Greater than 96 Consecutive Hours (ICD-10-PCS; 2021-02-09)
PROC: 0DH67UZ Insertion of Feeding Device into Stomach, Via Natural or Artificial Opening (ICD-10-PCS; 2021-02-09)
PROC: B2111ZZ Fluoroscopy of Multiple Coronary Arteries using Low Osmolar Contrast (ICD-10-PCS; 2021-02-09)
PROC: B2151ZZ Fluoroscopy of Left Heart using Low Osmolar Contrast (ICD-10-PCS; 2021-02-09)
PROC: 3E033XZ Introduction of Vasopressor into Peripheral Vein, Percutaneous Approach (ICD-10-PCS; 2021-02-09)
PROC: 0JH606Z Insertion of Pacemaker, Dual Chamber into Chest Subcutaneous Tissue and Fascia, Open Approach (ICD-10-PCS; 2021-02-13)
PROC: 02HK3JZ Insertion of Pacemaker Lead into Right Ventricle, Percutaneous Approach (ICD-10-PCS; 2021-02-13)
PROC: 02H63JZ Insertion of Pacemaker Lead into Right Atrium, Percutaneous Approach (ICD-10-PCS; 2021-02-13)
DX: I44.2 Atrioventricular block, complete (principal); J96.00 Acute respiratory failure, unspecified whether with hypoxia or hypercapnia; K72.01 Acute and subacute hepatic failure with coma; I63.322 Cerebral infarction due to thrombosis of left anterior cerebral artery; I46.8 Cardiac arrest due to other underlying condition; R57.0 Cardiogenic shock; G93.1 Anoxic brain damage, not elsewhere classified; I50.42 Chronic combined systolic (congestive) and diastolic (congestive) heart failure; N39.0 Urinary tract infection, site not specified; E87.2 Acidosis; I13.0 Hypertensive heart and chronic kidney disease with heart failure and stage 1 through stage 4 chronic kidney disease, or unspecified chronic kidney disease; N17.9 Acute kidney failure, unspecified; E87.3 Alkalosis; E87.0 Hyperosmolality and hypernatremia; K92.2 Gastrointestinal hemorrhage, unspecified; I69.951 Hemiplegia and hemiparesis following unspecified cerebrovascular disease affecting right dominant side; T40.5X1A Poisoning by cocaine, accidental (unintentional), initial encounter; I49.01 Ventricular fibrillation; Z66 Do not resuscitate; Z51.5 Encounter for palliative care; Z20.822 Contact with and (suspected) exposure to COVID-19; I49.1 Atrial premature depolarization; E78.5 Hyperlipidemia, unspecified; F17.210 Nicotine dependence, cigarettes, uncomplicated; F14.10 Cocaine abuse, uncomplicated; E87.5 Hyperkalemia; E16.2 Hypoglycemia, unspecified; N18.30 Chronic kidney disease, stage 3 unspecified; D72.829 Elevated white blood cell count, unspecified; T47.1X5A Adverse effect of other antacids and anti-gastric-secretion drugs, initial encounter; R60.9 Edema, unspecified; R00.0 Tachycardia, unspecified; E87.6 Hypokalemia; Z79.899 Other long term (current) drug therapy; Z82.49 Family history of ischemic heart disease and other diseases of the circulatory system; Z91.14 Patient's other noncompliance with medication regimen; Z78.1 Physical restraint status; D64.9 Anemia, unspecified; I95.9 Hypotension, unspecified
CPT/HCPCS: 0240U; 33208; 36415; 36416; 36600; 51702; 70450; 71045; 80048; 80053; 80061; 80306; 81003; 81015; 82550; 82553; 82805; 83605; 83735; 83880; 84100; 84443; 84484; 85025; 85610; 85730; 87040; 87086; 93005; 93010; 93458; 94002; 94003; 95712; 95816; 95819; 95957; 96365; C1785; C1898; C9113; J0171; J0461; J0690; J0692; J1580; J1644; J1650; J1940; J2001; J2060; J2270; J2704; J3010; J3475; J3480; J3490; J7050; J7070; J7120; U0003; U0005